=== PATIENT | female | born 1960 | race Two or more races ===

== ENCOUNTER 2019-08-23 05:10 | Day surgery (SDC) | payer OTHER ==
[~2019-08-23] VITALS: Ht 162.6 cm; Wt 79.4 kg
[2019-08-23] VITALS (13 sets, daily range): BP systolic 116–139; BP diastolic 70–88
[~2019-08-23 05:10] MED LIST: OMEPRAZOLE20 M2 ORAL
[2019-08-23] MEDS ORDERED: celeBREX 200mg Cap **SURGERY PATIENTS ONLY ORAL ONE (06:00)
[2019-08-23] MEDS ORDERED: ceFAZolin 1gm IVPB IVPB ONE ×2 (06:00)
[2019-08-23] MEDS ORDERED: oxyCONTIN 20mg tab ORAL ONE (06:00)
[2019-08-23] MEDS ORDERED: Midazolam 2mg/2ml Inj ONE (07:08)
[2019-08-23] MEDS ORDERED: fentaNYL 100 mcg/2 mL IV ONE (07:08)
[2019-08-23] MEDS ORDERED: Kenalog-40 1ml Vial ONE (07:14)
[2019-08-23] MEDS ORDERED: Ketorolac 30mg Inj ONE ×2 (07:14→08:35)
[2019-08-23] MEDS ORDERED: Duramorph PF 5mg/10ml amp ONE (07:14)
[2019-08-23] MEDS ORDERED: Bupivacaine 0.25% Inj 30ml INJ ONE (07:15)
[2019-08-23] MEDS ORDERED: Lidocaine 1% 10mg/ml/Epi 0.005mg/ml 30ml vial INJ ONE (07:15)
--- NOTE | 2019-08-23 07:26 | Anethesia Preoperative Eval ---
Anesthesia Pre-op PMH/ROS General Date of Evaluation: August 23, 2019 Time of Evaluation: 07:25 Anesthesiologist: joseph ASA Score: ASA 1 Mallampati Score Class I : Soft palate, uvula, fauces, pillars visible Class II: Soft palate, uvula, fauces visible Class III: Soft palate, base of uvula visible Class IV: Only hard plate visible Mallampati Classification: Class II Surgeon: emigdio Diagnosis: knee pain Surgical Procedure: left knee scope Anesthesia History: none Family History: no anesthesia problems Allergies: Coded Allergies: CIPROFLOXACIN (Verified Allergy, Severe, swelling; "cant breath", 08/21/19) Medications: see eMAR Patient NPO?: Yes NPO Date: August 22, 2019 NPO Time: 00:01 Past Medical History Cardiovascular: Denies: HTN, CAD, NH, valve dz, arrhythmia, other Pulmonary: Denies: asthma, COPD, GEOVANNY, other Gastrointestinal/Genitourinary: Denies: GERD, CRI, ESRD, other Neurologic/Psychiatric: Denies: dementia, CVA, depression/anxiety, TIA, other Endocrine: Denies: DM, hypothyroidism, steroids, other Hematology/Immune: Denies: anemia, DVT, bleeding disorder, other Musculoskeletal/Integumentary: Denies: OA, RA, DJD, DDD, edema, other PMH Narrative: covid test negative Anesthesia Pre-op Phys. Exam Physician Exam Last Vital Signs Date Time Temp Pulse Resp B/P (MAP) Pulse Ox O2 Delivery O2 Flow Rate FiO2 08/23/19 05:50 Room Air 08/23/19 05:44 97.2 66 18 121/78 99 Constitutional: NAD Neurologic: CN 2-12 intact Cardiovascular: RRR Respiratory: CTA Gastrointestinal: S/NT/ND Airway Exam Mallampati Classification 2 Mallampati Score: Class II MO: full ROM: full Dentures: no upper, no lower Anesthesia Pre-op A/P Studies Pre-op Studies: EKG - sr Risk Assessment & Plan Plan: general Pre-Antibiotics Drug: ancef Given Within 1 Hr of Incision: Yes Time Given: 07:35 Mary Ann Garcia CRNA August 23, 2019 07:26
[2019-08-23] MEDS ORDERED: LR 1000ml ONE (07:30)
[2019-08-23] MEDS ORDERED: fentaNYL 100 mcg/2 mL IV PRN (07:30)
[2019-08-23] MEDS ORDERED: Metoclopramide 10mg/2ml Inj IVP PRN (07:30)
--- NOTE | 2019-08-23 07:34 | Operative Note - PDOC ---
Operative Note Operative Note Pre-op Diagnosis: left knee internal derangment Procedure: see op report Post-op Diagnosis: same as pre-op plus Operative Findings: consistent w/pre-op dx studies Anesthesia: MAC Specimen: none Complications: none Condition: stable Estimated Blood Loss: none Implant(s) used?: No Ovi Hui MD August 23, 2019 07:34
--- NOTE | 2019-08-23 07:34 | Pre-Procedure Note/Attestation ---
Pre-Procedure Note/Attestation Complete Prior to Procedure Planned Procedure: left Procedure Narrative: knee diagnostic arthroscopy, possible menisectomy, synovectomy, chondroplasty Indications for Procedure Pre-Operative Diagnosis: left knee internal derangment Attestation I attest that I discussed the nature of the procedure; its benefits; risks and complications; and alternatives (and the risks and benefits of such alternatives ), prior to the procedure, with the patient (or the patient's legal traffic representative). I attest that, if there was a reasonable possibility of needing a blood transfusion, the patient (or the patient's legal traffic representative) was given the [facility] standardized written summary, pursuant to the Kurt Rashawn Blood Safety Act ([place] Health and Safety Code # 1645, as amended). I attest that I re-evaluated the patient just prior to the surgery and that there has been no change in the patient's H&P, except as documented below: Ovi Hui MD August 23, 2019 07:34
--- NOTE | 2019-08-23 07:39 | Pre-Procedure Note/Attestation ---
Pre-Procedure Note/Attestation Complete Prior to Procedure Planned Procedure: left Procedure Narrative: knee diagnostic arthroscopy, possible menisectomy, synovectomy Indications for Procedure Pre-Operative Diagnosis: left knee internal derangment Attestation I attest that I discussed the nature of the procedure; its benefits; risks and complications; and alternatives (and the risks and benefits of such alternatives ), prior to the procedure, with the patient (or the patient's legal support representative). I attest that, if there was a reasonable possibility of needing a blood transfusion, the patient (or the patient's legal support representative) was given the [facility] standardized written summary, pursuant to the Kurt Rashawn Blood Safety Act ([place] Health and Safety Code # 1645, as amended). I attest that I re-evaluated the patient just prior to the surgery and that there has been no change in the patient's H&P, except as documented below: Ovi Hui MD August 23, 2019 07:39
[2019-08-23] MEDS ORDERED: HYDROmorphone 1mg/ml Carpuject SUBQ PRN ×2 (07:45)
[2019-08-23] MEDS ORDERED: D5 1/2NS 1,000 ML IV SCH ×2 (07:45)
[2019-08-23] MEDS ORDERED: HYDROcodone/Acetamin 5/325 tab ORAL PRN ×2 (07:45)
[2019-08-23] MEDS ORDERED: Lidocaine 1% MPF 10mg/ml 5ml ONE (07:45)
[2019-08-23] MEDS ORDERED: Tylenol #3 tab (300mg/30mg) ORAL PRN ×2 (07:45)
[2019-08-23] MEDS ORDERED: NS Irrig 4000ml IRRIG ONE ×2 (07:50→07:55)
--- NOTE | 2019-08-23 08:27 | Immediate Post-Op Evaluation ---
Immediate Post-Op Evalulation Immediate Post-Op Evalulation Procedure: left knee scope Date of Evaluation: August 23, 2019 Time of Evaluation: 08:26 IV Fluids: 500 Blood Pressure Systolic: 131 Blood Pressure Diastolic: 83 Pulse Rate: 75 Respiratory Rate: 14 O2 Sat by Pulse Oximetry: 99 Temperature (Fahrenheit): 98.8 Nausea: No Vomiting: No Complications none Patient Status: awake, reacts, patent Hydration Status: adequate Drug: ancef Given Within 1 Hr of Incision: Yes Time Given: 07:35 Mary Ann Garcia CRNA August 23, 2019 08:27
--- NOTE | 2019-08-23 11:50 | 48 Hour Post Anesthesia Eval ---
Post Anesthesia Evaluation Procedure: left knee scope Date of Evaluation: August 23, 2019 Time of Evaluation: 11:50 Blood Pressure Systolic: 139 0: 80 Pulse Rate: 70 Respiratory Rate: 16 Temperature (Fahrenheit): 97.7 O2 Sat by Pulse Oximetry: 98 Airway: patent Nausea: No Vomiting: No Hydration Status: adequate Cardiopulmonary Status: stable Mental Status/LOC: patient returned to baseline Post-Anesthesia Complications: none Follow-up care needed: N/A Mary Ann Garcia CRNA August 23, 2019 11:50
--- NOTE | 2019-08-23 19:14 | Operative Note - Dictated ---
DATE OF OPERATION: 08/23/2019 PREOPERATIVE DIAGNOSIS: Internal derangement of left knee secondary to possible meniscal versus chondral damage. POSTOPERATIVE DIAGNOSES: 1. Grade 3 to grade 4 chondral damage, medial femoral condyle. 2. Hypertrophic synovial tissue with medial plica. 3. Grade 3 chondral damage of trochlear groove. PROCEDURES: 1. Left knee arthroscopic chondroplasty of medial femoral condyle. 2. Synovectomy of medial, lateral, and patellofemoral compartment. SURGEON: Ovi Hui MD. ANESTHESIA: MAC. INDICATION FOR PROCEDURE: The patient is a pleasant female, who has had continued left knee pain. She failed conservative treatment and elected to undergo left knee diagnostic arthroscopy, possible synovectomy, chondroplasty, and meniscectomy. Risks, limitations, expectations, and complications of the procedure were discussed in detail. All questions were addressed. DESCRIPTION OF PROCEDURE: After informed consent was obtained, the patient was brought to the operating room. The patient was placed under monitored anesthesia control. Left leg was prepped and draped in a sterile manner. Time-out was performed. Inferolateral stab incision was then made. Trocar was introduced into the knee joint. There was hypertrophic plica making visualization of medial gutter somewhat difficult. There was no significant chondral damage in the patellofemoral compartment. Medial compartment was entered. Medial working portal was established. Synovectomy of the anterior portion of the medial compartment extending to intercondylar notch and lateral compartment was performed. Medial compartment was entered. The meniscus was probed and noted to be intact consistent with degeneration of posterior horn of medial meniscus. There was chondral damage, full thickness, grade 4 of distal femoral condyle with chondral flaps. Gentle chondroplasty was performed down to stable rim of tissue. The ACL was probed and noted to be intact. Lateral compartment was free of any meniscal or chondral damage. Camera was repositioned in the patellofemoral compartment. Excision of the fat pad, synovial tissue, and medial plica were completed. The instruments were removed. Portal sites were closed. The patient was awoken and taken to recovery room with stable vital signs. ESTIMATED BLOOD LOSS: None. COMPLICATIONS: None. SPECIMENS: None. IMPLANTS: None. Ovi Hui M.D. DR: HAJA JOB#: [id number] CC:
== END 2019-08-23 10:20 | disposition home or self-care (01) ==
LOC: SUR 05:10
DX: M67.262 Synovial hypertrophy, not elsewhere classified, left lower leg (principal); M94.8X6 Other specified disorders of cartilage, lower leg; Z88.8 Allergy status to other drugs, medicaments and biological substances
CPT/HCPCS: 29876; 94003; J0690; J1885; J2250; J2405; J2704; J3010; J3301; J3490; J7120; 94150